=== PATIENT | female | born 1950 | race Asian ===

== ENCOUNTER → 2017-06-13 | Outpatient (CLI) | payer MEDICARE ==
[~2017-06-13] MED LIST: DEXILANT60 MG PO; MULTIVITAMINS1 EAC7 PO; VITAMIN D PO
--- NOTE | 2017-06-13 13:00 | Diagnostic Imaging Report ---
PROCEDURE: Frontal and lateral views of the chest. COMPARISON: None. INDICATIONS: PNEUMONIA FINDINGS: Lines/tubes: None. Lungs: Lungs are well-inflated. Patchy/nodular air space opacity in the left lower lobe. Rest of the lungs is clear. Pleura: There is no pleural effusion or pneumothorax. Heart and mediastinum: The heart and the mediastinum are normal. Bones: No acute bony abnormality. IMPRESSION: 1. findings in the left lower lobe consistent with pneumonia, in the appropriate acute clinical setting. Heber Redmond M.D. Dictated by: Heber Redmond M.D. on 06/13/2017 at 13:08 Electronically approved by: Heber Redmond M.D. on 06/13/2017 at 13:08
== END ==
LOC: RAD 11:32
DX: J18.9 Pneumonia, unspecified organism (principal)
CPT/HCPCS: 71020

== ENCOUNTER → 2017-07-11 | Outpatient (CLI) | payer MEDICARE ==
--- NOTE | 2017-07-11 12:50 | Diagnostic Imaging Report ---
PROCEDURE:CHEST 2 VIEWS TECHNIQUE:PA and lateral chest INDICATION:Pneumonia COMPARISON:Patients [facility], , CHEST 2 VIEWS, 06/13/2017, 12:10. FINDINGS: Decreased left lower lobe airspace opacity relative to June 13. No cavitation. Lungs otherwise clear symmetrically inflated. No pleural effusions. Normal heart size and mediastinal contour. Intact skeleton. Cervical fusion hardware. CONCLUSION: Resolving left lower lobe pneumonia without acute abnormality. Dictated by: Raul Cartagena M.D. on 07/11/2017 at 12:50 Electronically approved by: Raul Cartagena M.D. on 07/11/2017 at 12:50
== END ==
LOC: RAD 12:02
DX: J18.9 Pneumonia, unspecified organism (principal)
CPT/HCPCS: 71046

== ENCOUNTER → 2018-01-19 | Outpatient (CLI) | payer MEDICARE ==
--- NOTE | 2018-01-19 15:31 | Diagnostic Imaging Report ---
EXAM: Bone mineral density study 01/19/2018 2:18 PM INDICATION: \S\MENOPAUSE COMPARISON: None FINDINGS: Evaluation of the left hip and lumbar spine was performed. The study is technically adequate. The patient's fracture risk is compared to an age-matched control. Left femoral neck bone mineral density: 0.53 g/cm2, T-score is -2.9, Z-score is -1.2. Left hip total bone mineral density: 0.676 g/cm2, T-score is -2.2, Z-score is -0.8. Lumbar spine total bone mineral density: 0.663 gm/cm2, T-score is -3.5, Z-score is -1.5. IMPRESSION: Bone mineralization by WHO Classification is osteoporosis, the fracture risk is high. Signed by: Dr. Kwame Barber MD on 01/19/2018 3:28 PM
== END ==
LOC: MAMMO 14:05
DX: Z12.31 Encounter for screening mammogram for malignant neoplasm of breast (principal); M89.9 Disorder of bone, unspecified
CPT/HCPCS: 77067; 77080